=== PATIENT | male | born 1950 | race Caucasian/White ===

== ENCOUNTER 2021-07-31 10:13 | Outpatient (CLI) | payer MEDICARE, SELFPAY ==
--- NOTE | ~2021-07-31 | XR_ITS ---
XR hip LT 2V w AP pelvis 07/31/2021 10:40 Indication: Hip pain. Procedure: AP pelvis and 2 views right hip Comparison: No prior studies for comparison. Findings: There is severe osteoarthritis of the right hip with remodeling of the femoral head and byron tabulum. There is possible avascular necrosis of the femoral head. There is a left total hip arthropl asty. No acute fracture is identified. 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 Reviewed, dictated and finalized at location A. L CUTTER Impression: 1: Severe osteoarthritis of the right hip with possible secondary avascular nec rosis of the femoral head.
[2021-07-31 19:12] LABS: Basophils Absolute Auto 0.1 K/mm3 (0.0-0.1); Basophils Percent Auto 1.3 % (0.2-1.2); Eosinophils Absolute Auto 0.1 K/mm3 (0-0.3); Eosinophils Percent Auto 2.3 % (0-4.4); Hematocrit 44.8 % (42.0-52.0); Hemoglobin 14.7 g/dL (14.0-18.0); Immature Granulocyte Absolute 0.01 K/mm3 (0.00-0.031); Immature Granulocyte Percent A 0.3 % (0-0.5); Lymphocytes Absolute Auto 1.29 K/mm3 (0.9-3.2); Lymphocytes Percent Auto 32.4 % (18.3-44.2); Mean Corpuscular HGB Conc 32.8 g/dl (32-36); Mean Corpuscular Hemoglobin 31.4 pg (26-34); Mean Corpuscular Volume 95.7 fl (80-100); Mean Platelet Volume 10.8 fl (7.4-10.4); Monocytes Absolute Auto 0.4 K/mm3 (0.1-0.6); Neutrophils Absolute Auto 2.2 K/mm3 (1.3-6.7); Neutrophils Percent Auto 54.7 % (45.5-73.1); Platelet Count Result 325 k/mm3 (150-375); Red Blood Count 4.68 M/mm3 (4.6-6.20); Red Cell Distribution Width 12.5 % (11.5-14.5)
[2021-07-31 21:24] LABS: Cholesterol 210 mg/dL (0-200); HDL Direct 73 mg/dL; Triglycerides 82 mg/dL (<150)
[2021-07-31 21:35] LABS: LDL Cholesterol Direct 110 mg/dL
[2021-07-31 21:54] LABS: Prostate Specific Antigen 0.6 ng/mL (< OR = 4.0)
[2021-07-31 21:56] LABS: Alanine Aminotransferase 18 U/L (4-50); Albumin Level 4.7 g/dL (3.5-5.1); Alkaline Phosphatase 84 U/L (38-126); Anion Gap 11 mmol/L (8-16); Aspartate Amino Transferase 28 U/L (17-59); Bilirubin,Total 0.6 mg/dL (0.2-1.3); Blood Urea Nitrogen 18 mg/dL (9-20); Calcium 9.3 mg/dL (8.4-10.2); Carbon Dioxide 27 mmol/L (22-30); Chloride 102 mmol/L (98-107); Estimated Glomerular Filt Rate > 60; Glucose 104 mg/dL (65-110); Potassium 4.5 mmol/L (3.4-5.0); Sodium 140 mmol/L (137-145)
== END 2021-07-31 10:14 | disposition home or self-care (01) ==
PROVIDERS: PCP Family Medicine; Visit Provider Family Medicine
DX: Z12.5 Encounter for screening for malignant neoplasm of prostate (principal); Z13.6 Encounter for screening for cardiovascular disorders; M16.11 Unilateral primary osteoarthritis, right hip
CPT/HCPCS: 36415; 73502; 80053; 80061; 84153; 85025; G0103

== ENCOUNTER 2021-09-25 09:34 | Outpatient (CLI) | payer MEDICARE, SELFPAY ==
--- NOTE | 2021-09-25 10:46 | ECG_ITS ---
Measurements Intervals Eads Rate: 64 P: 81 CT: 204 QRS: 68 QRSD: 105 T: 73 QT: 392 QTc: 407 Interpretive Statements SINUS RHYTHM POSSIBLE RIGHT VENTRICULAR CONDUCTION DELAY [RSR (QR) IN V1/V2] NO PREVIOUS ECG AVAILABLE FOR COMPARISON Electronically Signed On 09-25-2021 20:54:38 CDT by Jessica Lunsford M.D.
[2021-09-25 11:30] LABS: Add Urine Microscopic? NO; Appearance Urine Clear (Clear); Bilirubin Urine Negative (Negative); Blood Urine Negative (Negative); Color Urine Straw (Yellow); Glucose Urine UA Negative (Negative); Ketones Urine Negative (Negative); Leukocyte Esterase Ur Negative LEU/UL (Negative); Nitrate Urine Negative (Negative); Protein Urine Negative (Negative); Urobilinogen Urine Negative mg/dL (<2.0)
[2021-09-25 11:47] LABS: Prothrombin Time 13.1 Seconds (11.1-14.7)
[2021-09-25 11:48] LABS: Partial Thromboplastin Time 32.2 SECONDS (22.3-36.8)
[2021-09-25 11:54] LABS: Specific Grav Ur 1.004 (1.001-1.035)
[2021-09-25 11:58] LABS: Urine Cotinine NEGATIVE
== END 2021-09-25 09:35 | disposition home or self-care (01) ==
LOC: ANHSURGERY 09:38
PROVIDERS: PCP Family Medicine; Visit Provider Orthopaedic Surgery
DX: Z01.818 Encounter for other preprocedural examination (principal); M16.11 Unilateral primary osteoarthritis, right hip
CPT/HCPCS: 80307; 81003; 83036; 85610; 85730; 86850; 86900; 86901; 87081; 93005

== ENCOUNTER 2021-10-01 01:33 | Day surgery (SDC) | payer MEDICARE, SELFPAY ==
[2021-09-25 09:46] VITALS: BMI 22.8
--- NOTE | 2021-09-25 10:19 | PC.NURSE ---
Report to the Outpatient Waiting Room, entrance under the green pavilion located off [facility], at time __0600 on date _10/01/21 . OR Time: _729 . - You and your visitor will be asked a series of questions to screen for COVID 19 for your protection. - Only one visitor is allowed at this time. - The patient visitor is requested to leave or wait in car when not with patient. - A mask is required within the hospital. Patients may have clear liquids (water, carbonated beverages, clear teas, apple juice) until 3 hours prior to surgery with a maximum of 20 ounces. - No food from midnight until time of surgery - Infants may have breast milk until 4 hours before surgery, infant formula 6 hours prior to surgery. - Children will be allowed to drink immediately following surgery. If applicable, please bring a bottle or sippy cup to assist with drinking. Juice, water, soda, and popsicles are readily available. For infants on formula, please bring formula the day of surgery. Pacifiers are allowed. Take the following medications with a SIP of water the morning of surgery: ___NONE Medications to discontinue per physician __ALL VITAMINS AND SUPPLEMENTS 3 DAYS PRE OP Date to take last dose___09/27/21 Please no make-up, nail malaysian, hairspray, perfume, deodorant, or body powder the day of surgery. No jewelry (including any body piercings) or valuables the day of surgery, leave them at home. Please take a shower or bath the night before, or the morning of, surgery with an antibacterial soap. Wear comfortable, loose fitting clothing. Children are encouraged to wear pajamas. - Jewelry must be removed prior to entering the operating room. Rings and piercings that are not removed may be cut off. - The hospital will not accept responsibility for valuables. - Please leave all valuables, including medications, at home the day of surgery. If you are going home after surgery, a licensed skip load driver must drive you home. - NO public transportation without another adult. - We recommend that an adult stay with you for 24 hours following discharge. - We also recommend that you do not drive, make important decision, drink alcoholic beverages, or take any drugs that were not prescribed by your health care provider for at least 24 hours after your discharge time. For Pediatric surgeries, we recommend two adults accompany the child home (only one inside the building at this time). Follow any additional instructions given to you from your surgeon. If you or anyone in your household have experienced Covid symptoms in the past week, please notify your surgeon or the nurse liaison at the phone number below for possible testing. VERBAL AND WRITTEN instructions given to _PATIENT and asked if any additional questions and then verbalized understanding. Patient advised to call surgeon office or pre surgery nurse liaison [phone] if any additional questions.
[2021-09-25 10:47] VITALS: BP 141/68; PULSE 66; RESP 18; TEMP 36.8; O2SAT 100
[2021-10-01] VITALS (15 sets, daily range): BP systolic 86–125; BP diastolic 46–66; PULSE 44–100; RESP 10–21; TEMP 35.5–36.4; O2SAT 95–100
--- NOTE | ~2021-10-01 | XR_ITS ---
EXAMINATION: XR hip RT 1V DATE: 10/01/2021 10:23 INDICATION: Total right hip arthroplasty. Postop. TECHNIQUE: A single view of right hip was obtained. COMPARISON: Right hip radiographs 09/17/2021 FINDINGS: There is a total right hip arthroplasty in near-anatomic alignment. Partially visualized is a total left hip arthroplasty in near-anatomic alignment. No fracture. There is gas in the soft tiss ues around right hip, consistent with recent surgery. IMPRESSION: 1. Bilateral total hip arthroplasties in near-anatomic alignment. Reviewed, dictated and finalized at location B.
[2021-10-01] MEDS: ACETAMINOPHEN 500 MG TABLET 1000 MG PO (06:28)
[2021-10-01] MEDS: LACTATED RINGERS 1,000 ML 30 ML IV CONT ×3 (06:40→11:24)
[2021-10-01] MEDS: TRANEXAMIC ACID 1,000MG/ISO100 1,000 MG/100 ML BAG 200 MG IVPB (07:03)
--- NOTE | 2021-10-01 07:14 | WPDHPUPDATE1 ---
History and Physical Update Update Date/Time: 10/01/21 07:14 History and Physical has been reviewed, including an updated exam of the patient. There are NO changes in the patient's condition. Risks, benefits, and alternatives have been discussed and questions answered. Patient agrees to proceed with procedure.
--- NOTE | 2021-10-01 07:26 | WPDANESEPP ---
Anes - Eval Pre Procedure Procedure: Operation Date: 10/01/21 07:30 Proposed Procedures p Right Total Hip Arthroplasty - Gilbert Kelsey MD Date/Time: 10/01/21 07:26 Surgeon: Laure Preop Diagnosis: Right hip DJD Pre Op Diagnosis: right hip djd Patient Data Age: 70 Gender: M Height: 1.8 m Weight: 73.1 kg Last Vital Signs Temp 36.1 C L 10/01/21 06:40 Pulse 76 10/01/21 06:40 Resp 16 10/01/21 06:40 BP 125/66 10/01/21 06:40 Pulse Ox 100 10/01/21 06:40 Allergies Allergy/AdvReac Type Severity Reaction Status Date / Time No Known Allergies Allergy Verified 10/01/21 06:18 Home Medications Medication Instructions Recorded Confirmed Type antiarthritic combination no.2 900 900 mg PO DAILY 09/24/21 10/01/21 History mg tablet chlorhexidine gluconate 4 % 1 applic TOPICAL ONCE #237 ml 09/24/21 10/01/21 Rx topical liquid chromium polynicotinate-alpha 1 cap PO DAILY 09/24/21 10/01/21 History lipoic acid 200 mcg-60 mg capsule omega [id number] oil [Fish Oil] 1 cap PO BID 09/25/21 10/01/21 History Patient hx anesthesia problems: none Family hx anesthesia problems: none Results Review: All pre-operative results and documents have been reviewed as part of the pre-operative evaluation. [facility] Surgical History Surgical History H/O total hip arthroplasty LEFT- 2016 Social History Social History Smoking status: Never smoker Second hand tobacco smoke exposure: No Additional smoking assessment comments: DENIES ANY FORM OF TOBACCO USE Alcohol intake: never Substance use: never Living arrangements: with family Spiritual care concerns: No Exam Day of Procedure 10/01/21 07:26 Patient weight: normal Heart: regular rate and rhythm Lungs: clear to auscultation Airway: Mallampati scale class 1 Neurological: alert and oriented
[2021-10-01] MEDS: ceFAZolin 2 GM/D5W 50 ML 2 GM/50 ML BAG IVPB ×3 (07:30→23:11)
--- NOTE | 2021-10-01 08:03 | WPDANESEFPP ---
Anes - Eval Final PreProcedure Day of Procedure 10/01/21 0726 Patient weight: normal Heart: regular rate and rhythm Lungs: clear to auscultation Airway: Mallampati scale class 1 Neurological: alert and oriented Last oral intake: >/= 8 hours ASA classification: II Emergent: no Anesthetic plan: proceed Anesthesia type and monitoring: general and standard monitoring Results Review: All pre-operative results and documents have been reviewed as part of the pre-operative evaluation. Informed Consent: The patient's anesthetic plan and its attendant risks and benefits were discussed with the patient/family/POA. Questions were solicited and answers provided to the satisfaction of the patient/family/POA.
[2021-10-01] MEDS: TRANEXAMIC ACID 1,000 MG/10 ML AMPUL 1000 MG IV PUSH (09:14)
--- NOTE | 2021-10-01 10:04 | W.PM.PROC2 ---
Procedure Note - Detailed Date of Procedure 10/01/21 Pre-op Diagnosis right hip djd Post-op Diagnosis Same Procedure Performed R KIT Surgeon Gilbert Kelsey MD Anesthesia General Description of Procedure THE PATIENT WAS TAKEN TO THE OPERATING ROOM IN STABLE CONDITION AND WAS PLACED IN THE LATERAL DECUBITUS AND THE RIGHT LOWER EXTREMITY WAS PREPPED AND DRAPED IN THE STERILE FASHION. INCISION WAS MADE IN THE POSTERIOR LATERAL SIDE OF THE HIP, DOWN TO THE FASCIA LAYER. THE FASCIA WAS INCISED. THE HIP WAS EXPOSED. THE SHORT EXTERNAL ROTATORS WERE EXPOSED. THE SCIATIC NERVE WAS IDENTIFIED. THERE WAS A HIGH BIFURCATION OF THE NERVE. INCISION WAS MADE THROUGH THE SORT EXTERNAL ROTATORS AND THE CAPSULE OF THE HIP JOINT. THE HIP WAS DISLOCATED. AN OSTEOTOMY WAS MADE TO THE FEMORAL NECK ABOUT 1 CM PROXIMAL TO THE LESSER TROCHANTER. THE ACETABULUM WAS EXPOSED. THERE WAS SEVERE DJD SEEN. BEGINNING WITH A 44 REAMER THE ACETABULUM WAS REAMED TO 53 MM. A 53 MM TRIAL WAS PLACED IN 35 DEG OF ABDUCTION AND ANTEVERSION WAS IN ALIGNMENT WITH THE TRANS ACETABULAR LIGAMENT. THE FIT WAS EXCELLENT. THE TRIAL WAS REMOVED. A 54 MM BIOMET G7 COMPONENT WAS THEN TAPPED IN TO PLACE IN 35 DEG OF ABDUCTION AND ANTEVERSION IN ALIGNMENT WITH THE TRANSVERSE ACETABULAR LIGAMENT. THE FIT WAS EXCELLENT. THE ACETABULAR LINER WAS PLACED AND CHECKED FOR STABILITY. NEXT THE FEMUR WAS PREPARED WITH INITIAL CANAL FINDER THEN SEQUENTIAL BROACHING WITH A TAPERLOC HIP SYSTEM, UNTIL A 11 BROACH FIT WELL IN 15 OF ANTEVERSION. A +3 HIGH OFFSET NECK WITH 36 MM HEAD TRIAL WAS PLACED. THE SHUCK TEST WAS EXCELLENT AND THE STABILITY IN FLEXION AND ROTATION WAS EXCELLENT. LEG LENGTHS WERE GROSSLY EQUAL. TRIALS WERE REMOVED. A BIOMET TAPERLOC 11 STEM WAS PLACED WITH A HIGH OFFSET NECK THE FIT WAS EXCELLENT IN 15 DEG OF ANTEVERSION. A +3 CERAMIC 36 MM FEMORAL HEAD WAS PLACED. THE HIP WAS TRIALED AND THE STABILITY WAS EXCELLENT WERE THE LEG LENGTHS AND THE SHUCK TEST. THE WOUND WAS IRRIGATED WITH STERILE BETADINE AND WATER FOR 3 MIN. THEN WASHED AGAIN. THE CAPSULE AND THE EXTERNAL ROTATORS WERE APPROXIMATED WITH NUMBER 1 VICRYL. THE FASCIA WITH No 2 QUIL AND THE SUB CUTANEOUS LAYER WITH 2-0 ABSORBABLE SUTURE WITH A RUNNING 3-0 SUBCUTICULAR LAYER WELL. DERMABOND WAS PLACED AND STERILE DRESSING WAS APPLIED. PATIENT WAS PLACED BACK ON TO THE SUPINE POSITION AND WAS EXTUBATED Estimated Blood Loss 200 Complications No immediate complications Condition Stable Disposition PACU
[2021-10-01] MEDS: fentaNYL CITRATE INJ (*CRX) 100 MCG/2 ML VIAL 25 MCG IV PUSH ×4 (10:54→11:33)
[2021-10-01] MEDS: ONDANSETRON INJ 4 MG/2 ML VIAL IV PUSH ×2 (10:57→12:49)
[2021-10-01] MEDS: diphenhydrAMINE HCl INJ 50 MG/ML VIAL 12.5 MG IV PUSH (11:32)
--- NOTE | 2021-10-01 11:50 | ADMGEN ---
This patient, Kimmy Trivedi, was admitted to Medical Room 251-01. Patient/family oriented to hospital policies and general routines including ID bracelet, bed and alarms, visiting hours, pain management, procedures, bathroom and other care routines, personal items, smoking policy, room service/diet, and visiting hours. Information on how to activate the Rapid Response Team has been discussed. Patient/Family are encouraged to report perceived risks to care and to ask questions if they do not understand what they are told or what they should do.
[2021-10-01] MEDS: KCL 20 MEQ/D5/0.45% SOD CHL 1,000 ML 80 ML IV CONT ×2 (12:46→23:56)
[2021-10-01] MEDS: KETOROLAC 15 MG/ML VIAL (*BKC) IV PUSH ×3 (13:01→23:55)
[2021-10-01] MEDS: HYDROcodone/acetaminophen (*CRX) 7.5-325 MG TABLET 1 TAB PO (13:25)
[2021-10-01] MEDS: SENNA/DOCUSATE SODIUM TABLET 2 TAB PO (16:36)
[2021-10-02 01:27] VITALS: BP 100/55; PULSE 95; RESP 21; TEMP 37; O2SAT 100
[2021-10-02 05:27] VITALS: BP 102/53; PULSE 96; RESP 20; TEMP 37.1; O2SAT 99
[2021-10-02] MEDS: KETOROLAC 15 MG/ML VIAL (*BKC) IV PUSH ×2 (05:39→11:05)
[2021-10-02 06:13] LABS: Basophils Percent Auto 0.2 % (0.2-1.2); Eosinophils Percent Auto 0.2 % (0-4.4); Hematocrit 32.9 % (42.0-52.0); Hemoglobin 11.2 g/dL (14.0-18.0); Immature Granulocyte Absolute 0.03 K/mm3 (0.00-0.031); Immature Granulocyte Percent A 0.4 % (0-0.5); Lymphocytes Percent Auto 15.5 % (18.3-44.2); Mean Corpuscular Hemoglobin 31.5 pg (26-34); Mean Corpuscular Volume 92.7 fl (80-100); Mean Platelet Volume 9.9 fl (7.4-10.4); Monocytes Absolute Auto 0.6 K/mm3 (0.1-0.6); Monocytes Percent Auto 7.5 % (2.6-8.5); Neutrophils Absolute Auto 6.4 K/mm3 (1.3-6.7); Neutrophils Percent Auto 76.2 % (45.5-73.1); Platelet Count Result 253 k/mm3 (150-375); Red Blood Count 3.55 M/mm3 (4.6-6.20); Red Cell Distribution Width 12.2 % (11.5-14.5); White Blood Count 8.4 K/mm3 (4.5-10.0)
[2021-10-02 06:25] LABS: Anion Gap 3 mmol/L (8-16); Blood Urea Nitrogen 10 mg/dL (9-20); Calcium 7.9 mg/dL (8.4-10.2); Carbon Dioxide 29 mmol/L (22-30); Chloride 101 mmol/L (98-107); Estimated CRCL calculation 80 ml/min; Estimated Glomerular Filt Rate > 60; Glucose 106 mg/dL (65-110); Potassium 3.7 mmol/L (3.4-5.0); Sodium 133 mmol/L (137-145)
[2021-10-02] MEDS: ceFAZolin 2 GM/D5W 50 ML 2 GM/50 ML BAG IVPB (07:10)
[2021-10-02] MEDS: ACETAMINOPHEN 325 MG TABLET 650 MG PO (08:35)
[2021-10-02] MEDS: SENNA/DOCUSATE SODIUM TABLET 2 TAB PO (08:36)
[2021-10-02] MEDS: polyethylene glycoL 3350 17 GM POWD.PACK PO (08:36)
[2021-10-02] MEDS: ASPIRIN 325 MG ENTERIC TABLET 650 MG PO (08:42)
--- NOTE | 2021-10-02 09:13 | PM.PNORT ---
Progress Note: A&P Assessment and Plan (1) S/P total hip arthroplasty: Qualifiers: Laterality: right Qualified Code(s): Z96.641 - Presence of right artificial hip joint Code(s): Z96.649 - Presence of unspecified artificial hip joint Status: Acute Assessment and Plan: POD #1: R KIT Continue PT/OT. WBAT. Walker. HIGH FALL RISK. Continue pain control. Ice knee. Protect skin. DVT prophylaxis with Aspirin. SCDs. Incentive Spirometry Use reviewed. Monitor Dressing. Change prior to discharge. Bowel Regimen. Dispo: Home with Home Health pending progress with PT/OT Time Spent With Patient Time with patient: less than 15 minutes Subjective Subjective Date/Time Seen: 10/02/21 09:13 Post Op day: 1 Interval history: POD #1: Right KIT Patient doing very well. Pain well controlled. Mild nausea, no vomiting. Lightheadedness upon initial standing to chair, improved. Otherwise, no new concerns. Hopeful for discharge today. Review of Systems Review of Systems: All systems reviewed & are unremarkable except as noted in HPI and below Constitutional: Constitutional: Denies chills, Denies fever(s), Denies headache(s), Denies lethargy and Reports weakness ENT: Denies headache(s) Cardiovascular: Cardiovascular: Denies chest pain, Denies diaphoresis, Denies lightheadedness, Denies palpitations, Denies dyspnea and Denies dyspnea on exertion Respiratory: Respiratory: Denies cough, Denies dyspnea and Denies dyspnea on exertion Gastrointestinal: Gastrointestinal: Denies constipation, Denies diarrhea, Denies nausea and Denies vomiting Genitourinary: Genitourinary: Denies dysuria, Reports urinary frequency and Denies urinary hesitancy Musculoskeletal: Musculoskeletal: Reports joint swelling (Right Hip ) and Reports limited range of motion (Right Hip due to recent surgery ) Neurologic: Denies headache(s) and Reports weakness Endocrine: Endocrine: Denies palpitations Exam Const: General: comfortable and no acute distress Resp: Effort & Inspection: normal respiratory effort Cardio: Rate: regular rate Rhythm: regular rhythm GI: Inspection: non-distended Skin: General skin exam: normal color Other: Incision right hip c/d/i. Surrounding tissue without redness/warmth. Mild swelling consistent with recent surgery. No drainage. Neuro: Cognition (Neuro): normal cognition Speech: normal speech Other: Strength RLE decreased due to recent surgery. +ankle dorsiflexion/plantarflexion. NV intact. Moves toes. Sensaiton intact to light touch. Extrem: Right lower extremity: normal to inspection, normal capillary refill and hip/thigh Details: tenderness Location: of the hip (Thigh soft ) Location: laterally and anteriorly, swelling Location: at the hip, abnormal ROM (limited consistent with recent surgery ) and other (Incision c/d/i. ); no deformity and no unusual warmth Objective Data Vital Signs Vital Signs: Vital Signs - 24 hr 10/01/21 10:15 10/01/21 10:30 10/01/21 10:45 Temperature 36.2 C L Pulse Rate 64 53 L 52 L Respiratory Rate 12 16 10 L Blood Pressure 117/64 92/50 L 88/46 L Pulse Oximetry 100 100 100 10/01/21 11:00 10/01/21 11:15 10/01/21 11:30 Temperature Pulse Rate 51 L 49 L 57 L Respiratory Rate 10 L 16 10 L Blood Pressure 86/53 L 88/53 L 101/54 L Pulse Oximetry 96 99 100 10/01/21 11:50 10/01/21 12:05 10/01/21 12:35 Temperature 35.5 C L 35.7 C L Pulse Rate 44 L 59 L 56 L Respiratory Rate 12 12 14 Blood Pressure 110/52 L 108/55 L 101/52 L Pulse Oximetry 95 99 96 10/01/21 13:35 10/01/21 16:08 10/01/21 17:35 Temperature 36.3 C L 36.4 C Pulse Rate 67 72 Respiratory Rate 14 14 14 Blood Pressure 104/54 L 120/64 Pulse Oximetry 99 99 95 10/01/21 20:00 10/01/21 21:27 10/02/21 01:27 Temperature 36.2 C L 37.0 C Pulse Rate 100 95 Respiratory Rate 21 H 21 H Blood Pressure 101/54 L 100/55 L Pulse Oximetry 100 100 100 10/02/21 05:27 Temperature 37.1 C P
[2021-10-02 11:53] VITALS: BP 105/61; PULSE 88; RESP 16; TEMP 36.9; O2SAT 100
--- NOTE | 2021-10-02 14:26 | WPDANESPN ---
Anes - Prog Note Post-Op Date/Time: 10/02/21 14:26 Cardiovascular status: normal Respiratory status: normal Airway patency: baseline Mental status: baseline Post-Op hydration status: normal Vital Signs: Last Vital Signs Temp 36.9 C 10/02/21 11:53 Pulse 88 10/02/21 11:53 Resp 16 10/02/21 11:53 BP 105/61 10/02/21 11:53 Pulse Ox 100 10/02/21 11:53 Pain Score (VAS): 3 I/O: Intake & Output 10/01/21 10/02/21 10/02/21 23:59 07:59 15:59 Intake Total 1510 700 380 Output Total 200 1000 Balance 1310 -300 380 Laboratory Tests 10/02/21 05:57 10/02/21 05:57 10/02/21 10/02/21 05:57 05:57 WBC 8.4 RBC 3.55 L Hgb 11.2 L D Hct 32.9 L MCV 92.7 MCH 31.5 MCHC 34.0 RDW 12.2 Plt Count 253 MPV 9.9 Immature Gran % (Auto) 0.4 Neut % (Auto) 76.2 H Lymph % (Auto) 15.5 L [place] % (Auto) 7.5 Eos % (Auto) 0.2 Baso % (Auto) 0.2 Lymph # (Auto) 1.30 [place] # (Auto) 0.6 Eos # (Auto) 0.0 Baso # (Auto) 0.0 Abs Immat Gran (auto) 0.03 Absolute Neuts (auto) 6.4 Absolute Nucleated RBC 0.0 Nucleated RBC % 0.0 Sodium 133 L Potassium 3.7 Chloride 101 Carbon Dioxide 29 Anion Gap 3 L BUN 10 D Creatinine 0.80 Estim Creat Clear Calc 80 Estimated GFR > 60 Glucose 106 Calcium 7.9 L Patient Feedback: Patient satisfied with anesthetic care.
--- NOTE | 2021-10-02 14:54 | PM.DS ---
DS: Admitting Diagnosis Discharge Date 10/02/21 Admitting Diagnosis Right KIT DS: Discharge Diagnosis Discharge Diagnosis (1) S/P total hip arthroplasty: Qualifiers: Laterality: right Qualified Code(s): Z96.641 - Presence of right artificial hip joint Code(s): Z96.649 - Presence of unspecified artificial hip joint Status: Acute Assessment and Plan: POD #1: R KIT Continue PT/OT. WBAT. Walker. HIGH FALL RISK. Continue pain control. Ice knee. Protect skin. DVT prophylaxis with Aspirin. SCDs. Incentive Spirometry Use reviewed. Monitor Dressing. Change prior to discharge. Bowel Regimen. Dispo: Home with Home Health pending progress with PT/OT DS: Summary Hospital Course Reason for hospitalization: Right hip DJD Hospital Course: 70-year-old male admitted status post right total hip arthroplasty. Patient did very well on postop day 1. He progressed well as PT and OT and was deemed safe to be discharged home. His pain has been well controlled. He is hardly requiring narcotics. He will be discharged home with home health at this time and follow up in the outpatient orthopedic setting. Restrictions reviewed with the patient at bedside. All questions answered. Patient feels safe for discharge home. Status at Discharge Functional status at discharge: uses cane/walker Overall status at discharge: patient is progressing back to baseline Time Spent with Patient Time attestation: Total time spent providing and/or coordinating discharge services: Exam Const: General: comfortable and no acute distress Resp: Effort & Inspection: normal respiratory effort Cardio: Rate: regular rate Rhythm: regular rhythm GI: Inspection: non-distended Skin: General skin exam: normal color Other: Incision right hip c/d/i. Surrounding tissue without redness/warmth. Mild swelling consistent with recent surgery. No drainage. Neuro: Cognition (Neuro): normal cognition Speech: normal speech Other: Strength RLE decreased due to recent surgery. +ankle dorsiflexion/plantarflexion. NV intact. Moves toes. Sensaiton intact to light touch. Extrem: Right lower extremity: normal to inspection, normal capillary refill and hip/thigh Details: tenderness Location: of the hip (Thigh soft ) Location: laterally and anteriorly, swelling Location: at the hip, abnormal ROM (limited consistent with recent surgery ) and other (Incision c/d/i. ); no deformity and no unusual warmth DS: Data Data Completed and Pending Labs on day of discharge: Labs from last 24 hours 10/02/21 10/02/21 05:57 05:57 WBC 8.4 RBC 3.55 L Hgb 11.2 L D Hct 32.9 L MCV 92.7 MCH 31.5 MCHC 34.0 RDW 12.2 Plt Count 253 MPV 9.9 Immature Gran % (Auto) 0.4 Neut % (Auto) 76.2 H Lymph % (Auto) 15.5 L [place] % (Auto) 7.5 Eos % (Auto) 0.2 Baso % (Auto) 0.2 Lymph # (Auto) 1.30 [place] # (Auto) 0.6 Eos # (Auto) 0.0 Baso # (Auto) 0.0 Abs Immat Gran (auto) 0.03 Absolute Neuts (auto) 6.4 Absolute Nucleated RBC 0.0 Nucleated RBC % 0.0 Sodium 133 L Potassium 3.7 Chloride 101 Carbon Dioxide 29 Anion Gap 3 L BUN 10 D Creatinine 0.80 Estim Creat Clear Calc 80 Estimated GFR > 60 Glucose 106 Calcium 7.9 L Discharge Plan Discharge Patient Disposition: Home Health Service Discharge Instructions: Post Op Total Hip Replacement Instructions Dr. Gilbert Kelsey [phone] ? Your dressing will be changed prior to your discharge. You will be sent home with one additional dressing to be changed on post op day 7 by the home health RN. You may remove the dressing on post op day 14. Your incision was closed with dermabond, allow the dermabond to fall off naturally once your dressing is removed. Do not pull at the dermabond or disrupt incision healing. ? You may shower with your dressing but do not submerge in a bath tub. ? Do not drive or operate machinery until you are released by Dr. Garcia
== END 2021-10-02 15:52 | disposition home health service (06) ==
LOC: ANHSURGERY 05:55 → ANH2MED 11:48
PROVIDERS: PCP Family Medicine; Visit Provider Orthopaedic Surgery
PROC: (CPT 27130; principal; 2021-10-01 07:30)
DX: M16.11 Unilateral primary osteoarthritis, right hip (principal); M25.552 Pain in left hip; R26.9 Unspecified abnormalities of gait and mobility; M87.00 Idiopathic aseptic necrosis of unspecified bone
CPT/HCPCS: 27130; 36415; 73501; 80048; 80307; 81003; 83036; 85025; 85610; 85730; 86850; 86900; 86901; 87081; 93005; 97110; 97116; 97161; 97165; 97530; 97535; A9270; C1776; J0171; J0690; J1100; J1170; J1200; J1885; J2250; J2270; J2405; J2704; J2795; J3010; J3480; J7120

== ENCOUNTER 2021-10-21 09:24 | Outpatient (CLI) | payer MEDICARE, SELFPAY ==
--- NOTE | ~2021-10-21 | XR_ITS ---
EXAM: XR hip RT min 3V w AP pelvis DATE: 10/21/2021 10:07 HISTORY: Z96.641 - Presence of right artificial hip joint . COMPARISON: 10/01/2021. FINDINGS: Normal mineralization. Bilateral hip arthroplasties, incompletely visualized in the left, in good position. No hardware fracture or perihardware lucency. No osseous fracture or dislocation. N o lytic or blastic lesion. Joint spaces are maintained. No erosion or periosteal change. Right hip rob int space fluid, likely related to recent surgery. IMPRESSION: No acute osseous finding in the pelvis or right hip. No radiographic evidence of hardware -related complication. Reviewed, dictated and finalized at location K. IMPRESSION: No acute osseous finding in the pelvis or right hip. No radiographi c evidence of hardware-related complication.
== END 2021-10-21 09:25 | disposition home or self-care (01) ==
LOC: CHSIMG 09:27
PROVIDERS: PCP Family Medicine; Visit Provider Orthopaedic Surgery
DX: Z47.1 Aftercare following joint replacement surgery (principal); Z96.641 Presence of right artificial hip joint
CPT/HCPCS: 73502

== ENCOUNTER 2021-10-21 11:21 | Outpatient (RCR) | payer MEDICARE, SELFPAY ==
--- NOTE | 2021-10-23 08:40 | PTOPEVAL ---
Thank you for referring Kimmy Trivedi to [facility].? The patient is scheduled to be seen for therapy? ____x/week for ___ weeks. Please review, sign, date and return this plan of care CHRIST. I agree with and certify that the following plan of care is medically necessary. Referring Physician Date Admitting Provider: Attending Provider: Gilbert Kelsey MD Referring Provider: *PT Outpatient Evaluation Start: 10/21/21 11:09 Freq: Status: Active Protocol: Document 10/21/21 11:10 [facility] (Rec: 10/21/21 12:57 [facility] [id number]) Therapy Assessment Status Assessment Status Assessment Status Evaluation Outpatient Past Medical History Neurological History Hx Neurological Disorders No Significant History Cardiovascular History Hx Cardiac Disorders No Significant History Respiratory History Hx Respiratory Disorders No Significant History Gastrointestinal History Hx Gastrointestinal Disorders No Significant History Genitourinary History Hx Genitourinary Disorders No Significant History Musculoskeletal History Hx Arthritis Yes: GENERALIZED Hx Crutches or Walker Use Yes: WALKER Query Text:If Yes, Enter Crutches, Walker, or Both in the Comment Hx Fractures Yes: LT ANKLE Hx Joint Replacement Yes: 2015 [facility] AT [facility] Hx Orthopedic Surgery Yes: LT ANKLE ORIF Hx Other Musculoskeletal Disorders Yes: OA RT HIP Hematological History Hx Hematological Disorders No Significant History Endocrine History Hx Endocrine Disorders No Significant History HEENT History Hx Other HEENT Disorders Yes: WEARS CONTACTS Integumentary History Hx Skin Disorders No Significant History Reproductive History Hx Reproductive Disorders No Significant History Psychosocial History Hx Psychiatric Disorders No Significant History Pain History Has Past Pain Affected Your Daily Life Yes: RT HIP Anesthesia History Hx Post-Op Nausea/Vomiting Yes Evaluation Information Problem Diagnosis R KIT Onset 10/01/21 Additional Evaluation Detail Oswestry = 20% Functionally Decline Subjective Information Pt reports that his hip had Query Text:As Reported By Patient/ been bothering him for a few Family years. 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 He thinks the biggest issue is that when he tries to stand straight, he is not used to having equal length limbs. He
--- NOTE | 2021-11-13 14:00 | PTOPEVAL ---
Thank you for referring Kimmy Trivedi to [facility].? The patient is scheduled to be seen for therapy? ____x/week for ___ weeks. Please review, sign, date and return this plan of care [facility]RI[facility]. I agree with and certify that the following plan of care is medically necessary. Referring Physician Date Admitting Provider: Attending Provider: Gilbert Kelsey MD Referring Provider: *PT Outpatient Evaluation Start: 10/21/21 11:09 Freq: Status: Active Protocol: Document 11/13/21 09:30 [facility] (Rec: 11/13/21 11:23 [facility] [id number]) Therapy Assessment Status Assessment Status Assessment Status Re-evaluation Outpatient Past Medical History Neurological History Hx Neurological Disorders No Significant History Cardiovascular History Hx Cardiac Disorders No Significant History Respiratory History Hx Respiratory Disorders No Significant History Gastrointestinal History Hx Gastrointestinal Disorders No Significant History Genitourinary History Hx Genitourinary Disorders No Significant History Musculoskeletal History Hx Arthritis Yes: GENERALIZED Hx Crutches or Walker Use Yes: WALKER Query Text:If Yes, Enter Crutches, Walker, or Both in the Comment Hx Fractures Yes: LT ANKLE Hx Joint Replacement Yes: 2015 [facility] AT [facility] Hx Orthopedic Surgery Yes: LT ANKLE ORIF Hx Other Musculoskeletal Disorders Yes: OA RT HIP Hematological History Hx Hematological Disorders No Significant History Endocrine History Hx Endocrine Disorders No Significant History HEENT History Hx Other HEENT Disorders Yes: WEARS CONTACTS Integumentary History Hx Skin Disorders No Significant History Reproductive History Hx Reproductive Disorders No Significant History Psychosocial History Hx Psychiatric Disorders No Significant History Pain History Has Past Pain Affected Your Daily Life Yes: RT HIP Anesthesia History Hx Post-Op Nausea/Vomiting Yes Evaluation Information Problem Diagnosis R KIT Onset 10/01/21 Additional Evaluation Detail Oswestry = 6% Functionally Declined Subjective Information Pt reports that he was a bit Query Text:As Reported By Patient/ sore after his last therapy Family session and that he is doing better all of the time. He has been able to put his own socks on and perform more tasks around the house. When he walks, he continues to have hip and low back pain. Pain Assessment Timing of Pain Assessment Timing of Pain Assessment Pre-Treatment
== END 2021-11-18 23:59 | disposition home or self-care (01) ==
LOC: CHSPT 11:21
PROVIDERS: Visit Provider Orthopaedic Surgery
DX: Z96.641 Presence of right artificial hip joint (principal)
CPT/HCPCS: 97110; 97112; 97161; 97530

== ENCOUNTER 2022-06-23 09:32 | Outpatient (CLI) | payer MEDICARE, SELFPAY ==
[2022-06-23 19:59] LABS: Basophils Absolute Auto 0.1 K/mm3 (0.0-0.1); Basophils Percent Auto 1.4 % (0.2-1.2); Eosinophils Absolute Auto 0.1 K/mm3 (0-0.3); Eosinophils Percent Auto 2.7 % (0-4.4); Hematocrit 46.2 % (42.0-52.0); Hemoglobin 15.2 g/dL (14.0-18.0); Immature Granulocyte Absolute 0.01 K/mm3 (0.00-0.031); Immature Granulocyte Percent A 0.2 % (0-0.5); Lymphocytes Absolute Auto 1.25 K/mm3 (0.9-3.2); Lymphocytes Percent Auto 28.2 % (18.3-44.2); Mean Corpuscular HGB Conc 32.9 g/dl (32-36); Mean Corpuscular Hemoglobin 31.6 pg (26-34); Mean Platelet Volume 10.5 fl (7.4-10.4); Monocytes Absolute Auto 0.5 K/mm3 (0.1-0.6); Monocytes Percent Auto 10.8 % (2.6-8.5); Neutrophils Absolute Auto 2.5 K/mm3 (1.3-6.7); Neutrophils Percent Auto 56.7 % (45.5-73.1); Platelet Count Result 331 k/mm3 (150-375); Red Blood Count 4.81 M/mm3 (4.6-6.20); Red Cell Distribution Width 12.6 % (11.5-14.5); White Blood Count 4.4 K/mm3 (4.5-10.0)
[2022-06-23 20:04] LABS: Alanine Aminotransferase 29 U/L (6-50); Alkaline Phosphatase 76 U/L (38-126); Anion Gap 5 mmol/L (8-16); Aspartate Amino Transferase 46 U/L (17-59); Bilirubin,Total 0.5 mg/dL (0.2-1.3); Blood Urea Nitrogen 15 mg/dL (9-20); Calcium 8.9 mg/dL (8.4-10.2); Carbon Dioxide 31 mmol/L (22-30); Chloride 102 mmol/L (98-107); Estimated Glomerular Filt Rate > 60; Glucose 81 mg/dL (65-110); Potassium 4.4 mmol/L (3.4-5.0); Sodium 138 mmol/L (137-145)
[2022-06-23 20:35] LABS: Prostate Specific Antigen 0.5 ng/mL (< OR = 4.0)
== END 2022-06-23 09:33 | disposition home or self-care (01) ==
PROVIDERS: PCP Family Medicine; Visit Provider Family Medicine
DX: Z12.5 Encounter for screening for malignant neoplasm of prostate (principal); D64.9 Anemia, unspecified; E83.51 Hypocalcemia
CPT/HCPCS: 36415; 80053; 84153; 85025; G0103

== ENCOUNTER 2022-10-06 08:33 | Outpatient (CLI) | payer MEDICARE, SELFPAY ==
--- NOTE | ~2022-10-06 | XR_ITS ---
AP and lateral views of the right hip Clinical history: Pain Findings: No acute fracture or dislocation is seen.] Hip arthroplasty in place. No hardware complicat ion is evident. Soft tissues are unremarkable. Impression: No acute abnormality. Right hip arthroplasty in place. Reviewed, dictated and finalized at location . Impression: No acute abnormality. Right hip arthroplasty in place.
== END 2022-10-06 08:34 | disposition home or self-care (01) ==
LOC: CHSIMG 08:35
PROVIDERS: PCP Family Medicine; Visit Provider Orthopaedic Surgery
DX: M25.551 Pain in right hip (principal); Z96.641 Presence of right artificial hip joint
CPT/HCPCS: 73502